=== PATIENT | male | born 1955 | race Caucasian/White ===

== ENCOUNTER 2017-12-15 10:40 | Outpatient (CLI) | payer BC, OTHER ==
--- NOTE | 2017-12-15 12:09 | RAD ---
PA AND LATERAL VIEWS CHEST: Date: 12/15/17 HISTORY: Dyspnea. FINDINGS: Comparison made with exam of 10/30/14. The heart size is normal. The lungs are well expanded without lobar consolidation, pneumothorax, or p leural effusions. No acute osseous abnormalities are seen. IMPRESSION: No radiographic evidence of acute cardiopulmonary process. POS: [facility]
== END 2017-12-15 10:41 | disposition home or self-care (01) ==
LOC: RAD 10:40
PROVIDERS: ATTEND Internal Medicine
DX: R06.00 Dyspnea, unspecified (principal)
CPT/HCPCS: 71046

== ENCOUNTER 2019-03-21 19:00 | Outpatient (CLI) | payer MEDICARE, OTHER | END 2019-03-21 19:01 | disposition home or self-care (01) | LOC: SLEEPLAB 19:00 | PROVIDERS: ATTEND Internal Medicine | DX: G47.33 Obstructive sleep apnea (adult) (pediatric) (principal); R09.89 Other specified symptoms and signs involving the circulatory and respiratory systems; R06.83 Snoring; R35.1 Nocturia; G47.00 Insomnia, unspecified | CPT/HCPCS: 95806 ==